=== PATIENT | female | born 1985 | race Caucasian/White ===

== ENCOUNTER 2016-11-30 04:30 | Emergency (ER) | payer OTHER ==
--- NOTE | ~2016-11-30 | CT4 ---
[facility] A Service of [facility] RADIOLOGY TEXT RESULTS PATIENT: ANCELMO NUÑEZ LOCATION: SED : 83 UNIT #: [id number] AGE: [address]: Karlos Miller MD SEX: F ORDER DR: [id number] [place] [id number] E MR#: [id number] #: [id number] NAME: ANCELMO NUÑEZ : 1985 SEX: F STUDY DATE/TIME: 11/30/2016 4:23 UNIT: SED ROOM: STUDY DESCRIPTION: CT Abd and Pelv Wo Cont Attending Physician: Karlos Miller M.D. Ordering Physician: Karlos Miller M.D. Primary Care Physician: Primary Care Physician No MEDICAL IMAGING REPORT This report is preliminary unless electronic signature is present. EXAM CT abdomen and pelvis without contrast, 11/30/2016 HISTORY 31-year-old female with left flank pain beginning yesterday. COMPARISON None TECHNIQUE Helical scan performed through the abdomen and pelvis without oral or IV contrast. Coronal and sagittal reformatted images. This CT exam was performed with one or more of the following radiation dose reduction techniques: automatic exposure control, adjustment of mA and/or kV according to patient size, and iterative reconstruction. FINDINGS Visualized lung bases are unremarkable. The liver, spleen, pancreas, gallbladder, both adrenal glands, and both kidneys are grossly unremarkable. No urinary tract stones or hydronephrosis. Multiple left renal cysts. Abdominal aorta normal in course and caliber. Small bowel is unremarkable without obstruction. Appendix is normal. Colon unremarkable. No free fluid or free air. Urinary bladder, uterus, and both adnexa are unremarkable. No free pelvic fluid. No acute bony abnormality. IMPRESSION 1. No acute abdominal or pelvic findings. 2. Negative for urinary tract stones or hydronephrosis. 3. Normal appendix. [facility] A Service of [facility] RADIOLOGY TEXT RESULTS PATIENT: ANCELMO NUÑEZ LOCATION: SED : 84 UNIT #: [id number] AGE: [address]: Karlos Miller MD SEX: F ORDER DR: Dictated by... Herson Christine M.D. THIS IS AN ELECTRONICALLY VERIFIED REPORT Herson Christine M.D. at 11/30/2016 11:29 PM Yamil TD: 11/30/2016 15:12 JOB #: [id number] MEDICAL IMAGING REPORT Page 1 of 1
[2016-11-30 04:00] LABS: URINE SOURCE CLEAN CATCH
[2016-11-30 04:03] LABS: URINE APPEARANCE CLEAR; URINE BILIRUBIN NEG (NEG); URINE BLOOD NEG (NEG); URINE COLOR YELLOW; URINE GLUCOSE NEG (NORM); URINE KETONE NEG (NEG); URINE LEUKOCYTE ESTERASE NEG (NEG); URINE NITRATE NEG (NEG); URINE PROTEIN NEG (NEG); URINE SPECIFIC GRAVITY 1.025 (1.003-1.035); URINE UROBILINOGEN 0.2 MG/DL (NORM)
[2016-11-30 04:03] LABS: BASOPHIL# 0.1 X10e3 (0-0.3); BASOPHIL% 1.1 % (0-2.5); EOSINOPHIL# 0.3 X10e3 (0-0.7); EOSINOPHIL% 2.6 % (0.0-7.0); HEMATOCRIT 38.9 % (35.0-45.0); HEMOGLOBIN 12.3 gm/dL (12.0-16.0); LYMPHOCYTE# 3.3 X10e3 (1.0-3.5); LYMPHOCYTE% 28.3 % (17.0-45.0); MEAN CELL VOLUME 72.3 FL (83-96); MEAN CORPUSCULAR HEMOGLOBIN 22.9 PG (28-34); MEAN CORPUSCULAR HGB CONC 31.7 g/dL (30-36); MONOCYTE% 8.8 % (3.0-12.0); NEUTROPHIL# 6.8 X10e3 (1.5-7.1); NEUTROPHIL% 59.2 % (40-75); PLATELET COUNT 250 X10e3 (140-420); RED BLOOD COUNT 5.37 X10e (3.90-5.30); RED CELL DISTRIBUTION WIDTH 16.7 % (11.0-15.5); WHITE BLOOD COUNT 11.5 X10e3 (4.0-10.5)
[2016-11-30 04:04] LABS: DIFF IND NO
[2016-11-30 04:04] LABS: MICRO INDICATED? NO
[2016-11-30 04:16] LABS: ALBUMIN SERUM 4.2 g/dL (3.5-5.0); BILIRUBIN,TOTAL 0.1 mg/dL (0.2-2.0); BUN/CREATININE RATIO 15.55; CALCIUM SERUM 9.1 mg/dL (8.4-10.2); CREATININE SERUM 0.9 mg/dL (0.6-1.4); GLOM FILT RATE Estimated 84.7 mL/min (>60); POTASSIUM 3.8 mmol/L (3.5-5.1); PROTEIN TOTAL SERUM 7.9 g/dL (6.0-8.3)
[~2016-11-30 04:30] MED LIST: BIRTH CONTROL PILL PO; SYNTHROID300 MCG PO; VOLTAREN75 MG PO
== END 2016-11-30 06:06 | disposition home or self-care (01) ==
LOC: SED 04:30
DX: R10.9 Unspecified abdominal pain (principal); F17.200 Nicotine dependence, unspecified, uncomplicated
CPT/HCPCS: 74176; 80053; 81003; 84703; 85025; 96361; 96374; 96375; 99284; J2270; J2405